=== PATIENT | male | born 1955 | race Caucasian/White ===

== ENCOUNTER 2020-10-15 12:57 | Outpatient (CLI) | payer MEDICARE, OTHER | END 2020-10-15 12:58 | disposition home or self-care (01) | LOC: TBSIIMAG 12:57 | PROVIDERS: ATTEND Anesthesiology Pain Medicine | DX: M48.062 Spinal stenosis, lumbar region with neurogenic claudication (principal); M47.816 Spondylosis without myelopathy or radiculopathy, lumbar region; M47.815 Spondylosis without myelopathy or radiculopathy, thoracolumbar region; M47.814 Spondylosis without myelopathy or radiculopathy, thoracic region; M47.817 Spondylosis without myelopathy or radiculopathy, lumbosacral region | CPT/HCPCS: 72148 ==

== ENCOUNTER 2022-07-06 05:56 | Day surgery (SDC) | payer MEDICARE, OTHER ==
[2022-07-05 14:45] VITALS: BMI 41.5
[~2022-07-06 05:56] MED LIST: EPINEPHrine 0.3 MG in Ophthalmic Irrigation Solution 500 ML IRR SCH
[2022-07-06] MEDS ORDERED: Phenylephrine 2.5% Ophth Soln 5 ML BOT ONE (06:09)
[2022-07-06] MEDS ORDERED: Cyclopentolate 1% Opth Drop 2 ML BOT ONE (06:09)
[2022-07-06] MEDS ORDERED: fentaNYL PF 100 MCG/2 ML SYRINGE ONE (06:27)
[2022-07-06] MEDS ORDERED: PROPOFOL 20 ML ONE (06:27)
[2022-07-06] MEDS ORDERED: Midazolam HCl 2 mg/2 ml Vial ONE (06:27)
[2022-07-06] MEDS ORDERED: Lidocaine 1% PF 5 ML VIAL ONE (07:53)
[2022-07-06] MEDS ORDERED: Maxitrol 0.1% Opth Oint 3.5 GM TUBE ONE (07:53)
[2022-07-06] MEDS ORDERED: Triamcinolone 40 MG/ML VIAL ONE (07:53)
[2022-07-06] MEDS ORDERED: Lidocaine 4% PF 5 ML AMP ONE (07:53)
[2022-07-06] MEDS ORDERED: Bupivacaine 0.75% 10 ML VIAL ONE (07:53)
[2022-07-06] MEDS ORDERED: Indocyanine Green 25 MG/10 ML VIAL ONE (07:53)
[2022-07-06] MEDS ORDERED: CEFAZOLIN 1 GM VIAL ONE (07:53)
== END 2022-07-06 09:24 | disposition home or self-care (01) ==
LOC: SDC 05:56
PROVIDERS: ATTEND Ophthalmology Retina Specialist
PROC: 08T53ZZ Resection of Left Vitreous, Percutaneous Approach (ICD-10-PCS; principal; 2022-07-06)
PROC: 08NF3ZZ Release Left Retina, Percutaneous Approach (ICD-10-PCS; 2022-07-06)
DX: H35.342 Macular cyst, hole, or pseudohole, left eye (principal); I10 Essential (primary) hypertension; G47.30 Sleep apnea, unspecified; G62.9 Polyneuropathy, unspecified; E03.9 Hypothyroidism, unspecified; E66.01 Morbid (severe) obesity due to excess calories; Z68.41 Body mass index [BMI] 40.0-44.9, adult; Z79.890 Hormone replacement therapy; Z79.899 Other long term (current) drug therapy
CPT/HCPCS: 67025; J0171; J0690; J2250; J2704; J3301; J3490

== ENCOUNTER 2022-08-17 08:28 | Day surgery (SDC) | payer MEDICARE, OTHER ==
[2022-08-16 14:26] VITALS: BMI 48.6
[~2022-08-17 08:28] MED LIST changes: +Midazolam HCl 2 mg/2 ml Vial ONE; +fentaNYL 50 mcg/mL 1 mL Vial ONE
[2022-08-17] MEDS ORDERED: Phenylephrine 2.5% Ophth Soln 5 ML BOT ONE (08:53)
[2022-08-17] MEDS ORDERED: Cyclopentolate 1% Opth Drop 2 ML BOT ONE (08:53)
[2022-08-17] MEDS ORDERED: CEFAZOLIN 1 GM VIAL ONE (09:40)
[2022-08-17] MEDS ORDERED: Lidocaine 4% PF 5 ML AMP ONE (09:40)
[2022-08-17] MEDS ORDERED: Bupivacaine 0.75% 10 ML VIAL ONE (09:40)
[2022-08-17] MEDS ORDERED: Indocyanine Green 25 MG/10 ML VIAL ONE (09:40)
[2022-08-17] MEDS ORDERED: PROPOFOL 200 MG/20 ML VIAL ONE (09:40)
[2022-08-17] MEDS ORDERED: Triamcinolone 40 MG/ML VIAL ONE (09:40)
== END 2022-08-17 11:02 | disposition home or self-care (01) ==
LOC: SDC 08:28
PROVIDERS: ATTEND Ophthalmology Retina Specialist
PROC: 08T53ZZ Resection of Left Vitreous, Percutaneous Approach (ICD-10-PCS; principal; 2022-08-17)
PROC: 08NF3ZZ Release Left Retina, Percutaneous Approach (ICD-10-PCS; 2022-08-17)
DX: H35.342 Macular cyst, hole, or pseudohole, left eye (principal); Z79.890 Hormone replacement therapy; Z79.899 Other long term (current) drug therapy
CPT/HCPCS: 67042; J3010; 67025; J0171; J0690; J2250; J2704; J3301; J3490

== ENCOUNTER 2023-02-25 09:14 | Outpatient (CLI) | payer MEDICARE, OTHER ==
[2023-02-25 10:55] LABS: Hematocrit 46.3 % (38.8-50.0); Hemoglobin 15.3 g/dL (13.5-17.5); Mean Corpuscular Hemoglobin 31.6 pg (27.0-33.0); Mean Corpuscular Volume 95.7 fl (81.2-95.1); Mean Platelet Volume 9.2 fl (7.4-10.4); Platelet Count 289 10x3/uL (150-450); RBC Distribution Width 12.9 % (11.5-14.5); Red Blood Cell (RBC) Count 4.84 10x6/uL (4.32-5.72); White Blood Cell (WBC) Count 6.8 10x3/uL (3.5-10.5)
[2023-02-25 11:04] LABS: PTT 29.8 sec (22.0-33.0); Prothrombin Time 10.8 sec (9.5-12.1)
[2023-02-25 11:22] LABS: Anion Gap 18 mmol/L (10-20); BUN (Urea Nitrogen) 6 mg/dL (8.4-25.7); Calc. Creatinine Clearance 0 mL/min (70-130); Calcium 9.5 mg/dL (7.8-10.44); Carbon Dioxide 29 mmol/L (23-31); Chloride 98 mmol/L (98-107); Estimated GFR 88; Glucose 96 mg/dL (80-115); Potassium 3.7 mmol/L (3.5-5.1); Sodium 141 mmol/L (136-145)
== END 2023-02-25 09:15 | disposition home or self-care (01) ==
LOC: LABBT 09:14
PROVIDERS: ATTEND Neurological Surgery
DX: Z01.812 Encounter for preprocedural laboratory examination (principal); M48.07 Spinal stenosis, lumbosacral region
CPT/HCPCS: 80048; 85027; 85610; 85730

== ENCOUNTER 2023-03-01 05:56 | Inpatient (IN) | payer MEDICARE, OTHER ==
[2023-02-25 09:56] VITALS: BMI 38.0
[2023-03-01] MEDS ORDERED: Thrombin 5000 UNITS/5 ML VIAL ONE (06:12)
[2023-03-01] MEDS ORDERED: Vancomycin 1 GM VIAL ONE (06:12)
[2023-03-01] MEDS ORDERED: Bupivacaine PF 0.5% 30 ML VIAL ONE (06:12)
[2023-03-01] MEDS ORDERED: EPINEPHrine 1 MG/ML VIAL ONE (06:12)
[2023-03-01] MEDS ORDERED: Phenylephrine 40 MG/NS 250 ML 250 ML ONE ×2 (06:26→15:32)
[2023-03-01] MEDS ORDERED: Vasopressin 20 UNITS/ML VIAL ONE ×2 (06:26→16:40)
[2023-03-01] MEDS ORDERED: Norepinephrine 4 MG/4 ML VIAL ONE (06:26)
[2023-03-01] MEDS ORDERED: Midazolam HCl 2 mg/2 ml Vial ONE (06:27)
[2023-03-01] MEDS ORDERED: Fentanyl 250 MCG/5 ML VIAL ONE (06:27)
[2023-03-01] MEDS ORDERED: Calcium Chloride 1 GM/10 ML Abboject SYRINGE ONE (06:30)
[2023-03-01] MEDS ORDERED: Glycopyrrolate 0.2 MG/ML 5 ML SYRINGE ONE (06:30)
[2023-03-01] MEDS ORDERED: Rocuronium Bromide 10 MG/ML (10ML VIAL) ONE (06:30)
[2023-03-01] MEDS ORDERED: NEOSTIGMINE 3 MG/3 ML SYR 3 MG/3 ML SYRINGE ONE (06:30)
[2023-03-01] MEDS ORDERED: Ondansetron PF 4 MG/2 ML Vial ONE (06:30)
[2023-03-01] MEDS ORDERED: Vecuronium 10 MG VIAL ONE (06:30)
[2023-03-01] MEDS ORDERED: ePHEDrine Sulfate 50 MG/10 ML VIAL ONE (06:30)
[2023-03-01] MEDS ORDERED: PROPOFOL 200 MG/20 ML VIAL ONE (06:30)
[2023-03-01] MEDS ORDERED: Lidocaine 1% PF 5 ML VIAL ONE (06:30)
[2023-03-01] MEDS ORDERED: Sodium Chloride 0.9% 100 ML ONE (06:42)
[2023-03-01] MEDS ORDERED: CEFAZOLIN 2 GM VIAL ONE (06:42)
[2023-03-01] MEDS ORDERED: Mag-Al 1200 mg/1200 mg/30 ML UDCUP PO PRN (07:14)
[2023-03-01] MEDS ORDERED: HYDROcodone/Acetaminophen 10/325 mg Tablet PO PRN (07:14)
[2023-03-01] MEDS ORDERED: Morphine 2 MG/ML VIAL SLOW IVP PRN (07:14)
[2023-03-01] MEDS ORDERED: diphenhydrAMINE 50 MG/ML VIAL IVP PRN ×2 (07:14→19:43)
[2023-03-01] MEDS ORDERED: Milk Of Magnesia 30 ML UDCUP PO PRN (07:14)
[2023-03-01] MEDS ORDERED: HYDROcodone/Acetaminophen 7.5/325 mg Tablet PO PRN (07:14)
[2023-03-01] MEDS ORDERED: Acetaminophen/Codeine 30-300mg Tablet PO PRN (07:14)
[2023-03-01] MEDS ORDERED: Ondansetron PF 4 MG/2 ML Vial IVP PRN ×2 (07:14→19:43)
[2023-03-01] MEDS ORDERED: Prochlorperazine 10 MG/2 ML VIAL IM PRN (07:14)
[2023-03-01] MEDS ORDERED: Losartan 25 MG TAB PO SCH (09:00)
[2023-03-01] MEDS ORDERED: Non-Formulary Item 1 EACH (Losartan Potassium [Losartan Potassium] 100 MG Tablet) PO SCH (09:00)
[2023-03-01] MEDS ORDERED: Hydrochlorothiazide 25 MG TAB PO SCH (09:00)
[2023-03-01] MEDS ORDERED: Non-Formulary Item 1 EACH (Hydrochlorothiazide [Hydrochlorothiazide] 12.5 MG Tablet) PO SCH (09:00)
[2023-03-01] MEDS ORDERED: Non-Formulary Item 1 EACH (Gabapentin [Neurontin] 600 MG Tablet) PO SCH (09:00)
[2023-03-01] MEDS ORDERED: Rocuronium Bromide 50 MG/5 ML VIAL ONE ×4 (10:54→17:36)
[2023-03-01] MEDS ORDERED: Sevoflurane 250 ML INH ANEST BOTTLE ONE (14:03)
[2023-03-01] MEDS ORDERED: CEFAZOLIN 1 GM VIAL ONE ×3 (14:45→14:46)
[2023-03-01] MEDS ORDERED: Albumin 5% 500 ML ONE (14:46)
[2023-03-01] MEDS ORDERED: SUGAMMADEX SODIUM 200 MG/2 ML VIAL ONE (15:32)
[2023-03-01] MEDS ORDERED: Bacitracin Zinc Ointment 30 gm TUBE ONE (19:16)
[2023-03-01] MEDS ORDERED: Promethazine HCl 25 MG/ML VIAL IM PRN (19:43)
[2023-03-01] MEDS ORDERED: diphenhydrAMINE 50 MG/ML VIAL IM PRN (19:43)
[2023-03-01] MEDS ORDERED: Ketorolac Tromethamine 30 MG/ML VIAL IVP PRN (19:43)
[2023-03-01] MEDS ORDERED: Naloxone HCl 0.4 mg/ml Vial IV PRN (19:43)
[2023-03-01] MEDS ORDERED: diphenhydrAMINE 25 MG CAP PO PRN (19:43)
[2023-03-01] MEDS ORDERED: HYDROmorphone/PF 10 MG in Sodium Chloride 0.9% 99 ML IV PRN (19:43)
[2023-03-01] MEDS ORDERED: Communication Order-Pharmacy FS SCH (19:45)
[2023-03-01] MEDS ORDERED: fentaNYL PF 100 MCG/2 ML SYRINGE ONE (19:53)
[2023-03-01] MEDS ORDERED: HYDROmorphone 0.5 MG/0.5 ML SYRINGE ONE (20:05)
[2023-03-01] MEDS ORDERED: fentaNYL 50 mcg/mL 1 mL Vial ONE (20:45)
[2023-03-01] MEDS: CEFAZOLIN 2 GM in Sodium Chloride 0.9% 100 ML IVPB SCH (22:06)
[2023-03-01] MEDS: Gabapentin 300 MG CAP PO SCH (22:27)
[2023-03-02 07:06] LABS: #Monocytes 1.9 thou/uL (0.11-0.59); #Neutrophils 15.9 thou/uL (1.40-6.50); %Basophils 0.1 % (0.0-1.0); %Lymphocytes 6.3 % (21.0-51.0); %Monocytes 9.7 % (0.0-10.0); %Neutrophils 83.5 % (42.0-75.0); Hematocrit 32.7 % (42.0-52.0); Hemoglobin 10.9 g/dL (14.0-18.0); Mean Corpuscular HGB CONC 33.3 g/dL (32.0-36.0); Mean Corpuscular Hemoglobin 33.1 pg (27.0-31.0); Mean Corpuscular Volume 99.4 fl (78.0-98.0); Platelet Count 265 10x3/uL (130-400); RBC Distribution Width 13.2 % (11.5-14.5); Red Blood Cell (RBC) Count 3.29 mill/uL (4.70-6.10); White Blood Cell (WBC) Count 19.1 10x3/uL (4.8-10.8)
[2023-03-02] MEDS: Sodium Chloride 0.9% 1,000 ML IV SCH ×2 (07:39→09:17)
[2023-03-02] MEDS: dilTIAZem CD 240 MG CAP PO SCH ×2 (07:39→09:01)
[2023-03-02] MEDS: Gabapentin 300 MG CAP PO SCH ×3 (07:40→20:45)
[2023-03-02] MEDS: Levothyroxine Sodium 100 MCG TAB PO SCH ×2 (07:40→09:04)
[2023-03-02] MEDS: CEFAZOLIN 2 GM in Sodium Chloride 0.9% 100 ML IVPB SCH ×3 (07:40→16:04)
[2023-03-02 08:08] LABS: BUN (Urea Nitrogen) 10 mg/dL (8.4-25.7); Calc. Creatinine Clearance 109 mL/min (70-130); Estimated GFR 73
[2023-03-02 08:09] LABS: Anion Gap 18 mmol/L (10-20); Calcium 8.4 mg/dL (7.8-10.44); Carbon Dioxide 22 mmol/L (23-31); Chloride 99 mmol/L (98-107); Glucose 121 mg/dL (80-115); Potassium 4.8 mmol/L (3.5-5.1); Sodium 134 mmol/L (136-145)
[2023-03-02] MEDS: Acetaminophen 325 MG TAB PO PRN (11:01)
[2023-03-02 12:00] LABS: Bacteria/HPF None Seen HPF (None Seen); Bilirubin Negative (Negative); Blood, Urine 1+ (Negative); CAUTI Indications for Culture Fever or rigors; Clarity Clear (Clear); Glucose, Urine (Dipstick) Normal (Negative); Ketone, Urine Trace mg/dL (Negative); Leukocyte 250 Leu/uL (Negative); Nitrite Negative (Negative); Protein, Urine (Dipstick) 30 mg/dL (Neg-Trace); Specific Gravity, Urine 1.015 (1.002-1.036); Squamous Epithelial None Seen HPF (0-3); Urobilinogen Normal mg/dL (Less than 2); pH, Urine 5.5 (5.0-9.0)
[2023-03-02 12:05] LABS: Urine Culture Reflex Yes Yes
[2023-03-02] MEDS ORDERED: fentaNYL 50 mcg/mL 1 mL Vial SLOW IVP PRN (15:07)
[2023-03-02] MEDS: Ketorolac Tromethamine 30 MG/ML VIAL IVP SCH ×2 (17:28→23:15)
[2023-03-02] MEDS: tiZANidine HCl 4 MG TAB PO PRN (20:45)
[2023-03-02] MEDS: HYDROcodone/Acetaminophen 10/325 mg Tablet PO PRN (20:45)
[2023-03-03] MEDS: Sodium Chloride 0.9% 1,000 ML IV SCH ×2 (02:13→09:20)
[2023-03-03] MEDS: Ketorolac Tromethamine 30 MG/ML VIAL IVP SCH (05:49)
[2023-03-03 08:01] LABS: #Monocytes 1.7 thou/uL (0.11-0.59); #Neutrophils 12.7 thou/uL (1.40-6.50); %Basophils 0.2 % (0.0-1.0); %Eosinophils 0.1 % (0.0-10.0); %Lymphocytes 12.3 % (21.0-51.0); %Monocytes 10.2 % (0.0-10.0); %Neutrophils 76.5 % (42.0-75.0); Hematocrit 25.3 % (42.0-52.0); Hemoglobin 8.3 g/dL (14.0-18.0); Mean Corpuscular HGB CONC 32.8 g/dL (32.0-36.0); Mean Corpuscular Hemoglobin 32.5 pg (27.0-31.0); Mean Corpuscular Volume 99.2 fl (78.0-98.0); Mean Platelet Volume 9.7 fL (7.4-10.4); Platelet Count 233 10x3/uL (130-400); RBC Distribution Width 13.8 % (11.5-14.5); Red Blood Cell (RBC) Count 2.55 mill/uL (4.70-6.10); White Blood Cell (WBC) Count 16.6 10x3/uL (4.8-10.8)
[2023-03-03 08:49] LABS: Anion Gap 11 mmol/L (10-20); BUN (Urea Nitrogen) 25 mg/dL (8.4-25.7); Calc. Creatinine Clearance 51 mL/min (70-130); Calcium 7.8 mg/dL (7.8-10.44); Carbon Dioxide 27 mmol/L (23-31); Chloride 97 mmol/L (98-107); Estimated GFR 29; Glucose 116 mg/dL (80-115); Potassium 4.4 mmol/L (3.5-5.1); Sodium 131 mmol/L (136-145)
[2023-03-03] MEDS: Levothyroxine Sodium 100 MCG TAB PO SCH (09:20)
[2023-03-03] MEDS: Gabapentin 300 MG CAP PO SCH ×2 (09:21→21:14)
[2023-03-03] MEDS: dilTIAZem CD 240 MG CAP PO SCH (09:28)
[2023-03-03] MEDS: HYDROcodone/Acetaminophen 10/325 mg Tablet PO PRN ×2 (09:31→16:28)
[2023-03-03] MEDS: Albumin 25% 25 GM/100 ML BOT IVPB SCH ×3 (09:57→21:14)
[2023-03-03] MEDS ORDERED: Tamsulosin HCl 0.4 MG CAP PO SCH (10:00)
[2023-03-04] MEDS: Sodium Chloride 0.9% 1,000 ML IV SCH (01:34)
[2023-03-04] MEDS: Albumin 25% 25 GM/100 ML BOT IVPB SCH (04:10)
[2023-03-04] MEDS: HYDROcodone/Acetaminophen 10/325 mg Tablet PO PRN ×3 (05:23→14:44)
[2023-03-04 06:16] LABS: #Eosinphils 0.1 thou/uL (0.0-0.7); #Neutrophils 7.5 thou/uL (1.40-6.50); %Basophils 0.1 % (0.0-1.0); %Eosinophils 0.5 % (0.0-10.0); %Lymphocytes 14.7 % (21.0-51.0); %Monocytes 10.3 % (0.0-10.0); %Neutrophils 73.9 % (42.0-75.0); Hematocrit 21.1 % (42.0-52.0); Hemoglobin 6.9 g/dL (14.0-18.0); Mean Corpuscular HGB CONC 32.7 g/dL (32.0-36.0); Mean Corpuscular Hemoglobin 32.2 pg (27.0-31.0); Mean Corpuscular Volume 98.6 fl (78.0-98.0); Mean Platelet Volume 9.6 fL (7.4-10.4); Platelet Count 193 10x3/uL (130-400); RBC Distribution Width 13.6 % (11.5-14.5); Red Blood Cell (RBC) Count 2.14 mill/uL (4.70-6.10); White Blood Cell (WBC) Count 10.1 10x3/uL (4.8-10.8)
[2023-03-04 06:52] LABS: Anion Gap 15 mmol/L (10-20); BUN (Urea Nitrogen) 19 mg/dL (8.4-25.7); Calc. Creatinine Clearance 96 mL/min (70-130); Calcium 7.7 mg/dL (7.8-10.44); Carbon Dioxide 24 mmol/L (23-31); Chloride 100 mmol/L (98-107); Estimated GFR 63; Glucose 114 mg/dL (80-115); Potassium 3.9 mmol/L (3.5-5.1); Sodium 135 mmol/L (136-145)
[2023-03-04] MEDS: Gabapentin 300 MG CAP PO SCH (09:36)
[2023-03-04] MEDS: Levothyroxine Sodium 100 MCG TAB PO SCH (09:37)
[2023-03-04] MEDS: Tamsulosin HCl 0.4 MG CAP PO SCH (09:38)
[2023-03-04] MEDS ORDERED: Polyethylene Glycol 3350 17 GM Packet PO PRN (09:44)
[2023-03-04] MEDS ORDERED: Magnesium Citrate 300 ML BOT PO SCH (15:00)
[2023-03-04 21:05] LABS: Hematocrit 26.5 % (42.0-52.0); Hemoglobin 8.9 g/dL (14.0-18.0)
[2023-03-05] MEDS: Gabapentin 300 MG CAP PO SCH ×3 (00:02→20:43)
[2023-03-05] MEDS: HYDROcodone/Acetaminophen 10/325 mg Tablet PO PRN ×2 (00:04→09:52)
[2023-03-05] MEDS: tiZANidine HCl 4 MG TAB PO PRN (00:05)
[2023-03-05 06:46] LABS: Hematocrit 24.4 % (42.0-52.0); Hemoglobin 8.1 g/dL (14.0-18.0); Platelet Count 219 10x3/uL (130-400)
[2023-03-05 07:03] LABS: Anion Gap 11 mmol/L (10-20); BUN (Urea Nitrogen) 11 mg/dL (8.4-25.7); Calc. Creatinine Clearance 140 mL/min (70-130); Calcium 7.9 mg/dL (7.8-10.44); Carbon Dioxide 28 mmol/L (23-31); Chloride 102 mmol/L (98-107); Estimated GFR 94; Glucose 107 mg/dL (80-115); Potassium 3.9 mmol/L (3.5-5.1); Sodium 137 mmol/L (136-145)
[2023-03-05] MEDS: Tamsulosin HCl 0.4 MG CAP PO SCH (09:06)
[2023-03-05] MEDS: Levothyroxine Sodium 100 MCG TAB PO SCH (09:07)
[2023-03-05] MEDS: Polyethylene Glycol 3350 17 GM Packet PO SCH (09:54)
[2023-03-06] MEDS: Acetaminophen 325 MG TAB PO PRN (00:02)
[2023-03-06 05:40] LABS: Hematocrit 25.5 % (42.0-52.0); Hemoglobin 8.6 g/dL (14.0-18.0); Platelet Count 240 10x3/uL (130-400)
[2023-03-06] MEDS: HYDROcodone/Acetaminophen 10/325 mg Tablet PO PRN ×4 (06:13→23:52)
[2023-03-06] MEDS: Polyethylene Glycol 3350 17 GM Packet PO SCH (08:18)
[2023-03-06] MEDS: Gabapentin 300 MG CAP PO SCH ×2 (08:21→20:25)
[2023-03-06] MEDS: Levothyroxine Sodium 100 MCG TAB PO SCH (08:21)
[2023-03-06] MEDS: Tamsulosin HCl 0.4 MG CAP PO SCH (08:21)
[2023-03-06] MEDS ORDERED: Temazepam 15 MG CAP PO SCH (21:00)
[2023-03-06] MEDS ORDERED: traZODone HCl 150 MG TAB PO SCH (21:00)
[2023-03-06] MEDS ORDERED: Non-Formulary Item 1 EACH (Temazepam [Temazepam] 30 MG Capsule) PO SCH (21:00)
[2023-03-07] MEDS: Gabapentin 300 MG CAP PO SCH (08:25)
[2023-03-07] MEDS: Levothyroxine Sodium 100 MCG TAB PO SCH (08:25)
[2023-03-07] MEDS: Tamsulosin HCl 0.4 MG CAP PO SCH (08:25)
[2023-03-07] MEDS: HYDROcodone/Acetaminophen 10/325 mg Tablet PO PRN ×2 (08:26→16:42)
[2023-03-07] MEDS: Polyethylene Glycol 3350 17 GM Packet PO SCH (08:26)
[2023-03-07 11:18] LABS: Hematocrit 28.1 % (42.0-52.0); Hemoglobin 9.3 g/dL (14.0-18.0); Platelet Count 306 10x3/uL (130-400)
[2023-03-07 12:41] LABS: Actual Bicarbonate (HCO3a) 23.5 mEq/L (22-28); Analyzer IN Cardio OR; Base Excess (BEa) 0.7 mEq/L (-2.0 to +3.0); CO2 Tension 32.5 mmHg (35.0-45.0); Calcium, Ionized (arterial) 1.09 mmol/L (1.12-1.30); Carboxyhemoglobin (COHb) 1.1 gm% (0.0-3.0); Hematocrit-ABG 41 % (42.0-52.0); O2 Tension (PaO2), arterial 229.3 mmHg (> 80.0); Potassium - ABG Lab 3.29 mmol/L (3.70-5.30); pH, Arterial 7.477 (7.35-7.45)
[2023-03-07 12:41] LABS: Actual Bicarbonate (HCO3a) 24.1 mEq/L (22-28); Analyzer IN Cardio OR; Base Excess (BEa) 0.5 mEq/L (-2.0 to +3.0); CO2 Tension 35.6 mmHg (35.0-45.0); Calcium, Ionized (arterial) 1.09 mmol/L (1.12-1.30); Carboxyhemoglobin (COHb) 1.1 gm% (0.0-3.0); Hematocrit-ABG 39 % (42.0-52.0); Hemoglobin (Hb) 13.4 g/dL (14.0-18.0); O2 Tension (PaO2), arterial 245.9 mmHg (> 80.0); Potassium - ABG Lab 3.85 mmol/L (3.70-5.30); pH, Arterial 7.449 (7.35-7.45)
[2023-03-07 12:42] LABS: Analyzer IN Cardio OR; Base Excess (BEa) 1.1 mEq/L (-2.0 to +3.0); CO2 Tension 37.5 mmHg (35.0-45.0); Calcium, Ionized (arterial) 1.32 mmol/L (1.12-1.30); Carboxyhemoglobin (COHb) 0.8 gm% (0.0-3.0); Hematocrit-ABG 36 % (42.0-52.0); Hemoglobin (Hb) 12.4 g/dL (14.0-18.0); Potassium - ABG Lab 3.91 mmol/L (3.70-5.30); pH, Arterial 7.442 (7.35-7.45)
[2023-03-07 12:42] LABS: Actual Bicarbonate (HCO3a) 24.8 mEq/L (22-28); Analyzer IN Cardio OR; Base Excess (BEa) 1.4 mEq/L (-2.0 to +3.0); CO2 Tension 35.3 mmHg (35.0-45.0); Calcium, Ionized (arterial) 1.17 mmol/L (1.12-1.30); Carboxyhemoglobin (COHb) 0.6 gm% (0.0-3.0); Hematocrit-ABG 35 % (42.0-52.0); O2 Tension (PaO2), arterial 213.4 mmHg (> 80.0); Potassium - ABG Lab 4.86 mmol/L (3.70-5.30); pH, Arterial 7.465 (7.35-7.45)
[2023-03-07 12:44] LABS: Puncture Site Arterial Line
[2023-03-07 12:51] LABS: Puncture Site Arterial Line
[2023-03-07 12:52] LABS: Puncture Site Arterial Line
[2023-03-07 12:52] LABS: Puncture Site Arterial Line
[2023-03-07 15:40] VITALS: BP 138/77; TEMP 97.9
== END 2023-03-07 16:46 | disposition swing bed (61) | DRG 454 ==
LOC: SDC 05:56 → SURG B 07:14
PROVIDERS: ADMIT Neurological Surgery; ATTEND Neurological Surgery
PROC: 0SG10AJ Fusion of 2 or more Lumbar Vertebral Joints with Interbody Fusion Device, Posterior Approach, Anterior Column, Open Approach (ICD-10-PCS; principal; 2023-03-01)
PROC: 0SG1071 Fusion of 2 or more Lumbar Vertebral Joints with Autologous Tissue Substitute, Posterior Approach, Posterior Column, Open Approach (ICD-10-PCS; 2023-03-01)
PROC: 0SG30AJ Fusion of Lumbosacral Joint with Interbody Fusion Device, Posterior Approach, Anterior Column, Open Approach (ICD-10-PCS; 2023-03-01)
PROC: 0SG3071 Fusion of Lumbosacral Joint with Autologous Tissue Substitute, Posterior Approach, Posterior Column, Open Approach (ICD-10-PCS; 2023-03-01)
PROC: 01NB0ZZ Release Lumbar Nerve, Open Approach (ICD-10-PCS; 2023-03-01)
PROC: 0SB20ZZ Excision of Lumbar Vertebral Disc, Open Approach (ICD-10-PCS; 2023-03-01)
PROC: 4A133R1 Monitoring of Arterial Saturation, Peripheral, Percutaneous Approach (ICD-10-PCS; 2023-03-01)
PROC: 3E033XZ Introduction of Vasopressor into Peripheral Vein, Percutaneous Approach (ICD-10-PCS; 2023-03-01)
PROC: 30233J1 Transfusion of Nonautologous Serum Albumin into Peripheral Vein, Percutaneous Approach (ICD-10-PCS; 2023-03-01)
PROC: 30233N1 Transfusion of Nonautologous Red Blood Cells into Peripheral Vein, Percutaneous Approach (ICD-10-PCS; 2023-03-04)
DX: M48.062 Spinal stenosis, lumbar region with neurogenic claudication (principal); D62 Acute posthemorrhagic anemia; N17.9 Acute kidney failure, unspecified; M48.061 Spinal stenosis, lumbar region without neurogenic claudication; I10 Essential (primary) hypertension; E78.00 Pure hypercholesterolemia, unspecified; G89.29 Other chronic pain; Z96.652 Presence of left artificial knee joint; M43.10 Spondylolisthesis, site unspecified; E03.9 Hypothyroidism, unspecified; K21.9 Gastro-esophageal reflux disease without esophagitis; G47.33 Obstructive sleep apnea (adult) (pediatric); R33.9 Retention of urine, unspecified; K59.09 Other constipation; M43.16 Spondylolisthesis, lumbar region; M48.07 Spinal stenosis, lumbosacral region; Z98.41 Cataract extraction status, right eye; Z98.890 Other specified postprocedural states; Z98.42 Cataract extraction status, left eye; Z82.49 Family history of ischemic heart disease and other diseases of the circulatory system; Z83.3 Family history of diabetes mellitus; Z79.899 Other long term (current) drug therapy
CPT/HCPCS: 36415; 36416; 36430; 71045; 71046; 76770; 80048; 81001; 82805; 84443; 85014; 85018; 85025; 85049; 86850; 86900; 86901; 87086; 93005; 93010; 93970; 94760; A4314; C1713; C1889; J0171; J0690; J1170; J1885; J2250; J2405; J2704; J3010; J3370; J3490; J7050; P9016; P9045; P9047; S0020